=== PATIENT | male | born 1985 | race Two or more races ===

== ENCOUNTER 2017-11-18 11:52 | Emergency (ER) | payer SELFPAY ==
[2017-11-18] MEDS ORDERED: traMADol TAB* 50 MG PO ONE (13:07)
[2017-11-18] MEDS ORDERED: Penicillin VK TAB* 250 MG PO ONE (13:07)
--- NOTE | 2017-11-18 13:07 | ED ---
Throat Pain/Nasal Congestion - HPI Summary HPI Summary: 32-year-old male presents with dental pain for the past couple days. He has a history of dental cavities. Does not have a dentist. Pain is severe. Has been taking Tylenol ibuprofen with no relief. No fevers. No pain with eye movement. No swelling on ice. pain is in the front upper teeth. No recent fracture. No pus from the area. No chest or shortness breath. - History of Current Complaint Chief Complaint: EDDentalPain Time Seen by Provider: 11/18/17 12:14 - Allergies/Home Medications Allergies/Adverse Reactions: Allergies Allergy/AdvReac Type Severity Reaction Status Date / Time No Known Allergies Allergy Verified 11/18/17 12:11 PMH/Surg Hx/FS Hx/Imm Hx Endocrine/Hematology History: Denies: Hx Anticoagulant Therapy Respiratory History: Reports: Hx Asthma - Surgical History Surgery Procedure, Year, and Place: APPY - Immunization History Date of Tetanus Vaccine: Unknown Date of Influenza Vaccine: unknown Infectious Disease History: No Infectious Disease History: Denies: Traveled Outside the [place] in Last 30 Days - Family History Known Family History: Negative: Diabetes - Social History Alcohol Use: Weekly Substance Use Type: Reports: Cocaine Substance Use Comment - Amount & Last Used: 1 week ago Hx Tobacco Use: Yes Smoking Status (MU): Heavy Every Day Tobacco Smoker Review of Systems Negative: Fever Positive: Dental Pain Negative: Chest Pain Negative: Shortness Of Breath All Other Systems Reviewed And Are Negative: Yes Physical Exam Triage Information Reviewed: Yes Vital Signs On Initial Exam: Initial Vitals Temp Pulse Resp BP Pulse Ox 98.4 F 68 19 130/89 99 11/18/17 12:08 11/18/17 12:08 11/18/17 12:08 11/18/17 12:08 11/18/17 12:08 Vital Signs Reviewed: Yes Appearance: Positive: Well-Appearing Skin: Positive: Warm, Dry Head/Face: Positive: Normal Head/Face Inspection Eyes: Positive: Normal, EOMI, PAXTON, Conjunctiva Clear ENT: Positive: Normal ENT inspection, Pharynx normal, TMs normal Dental: Positive: Percussion Tenderness @ - 8,9,10, Gross Decay/Caries @ - throughout. Negative: Abscess @ Neck: Positive: Supple, Nontender, No Lymphadenopathy Respiratory/Lung Sounds: Positive: Clear to Auscultation, Breath Sounds Present Cardiovascular: Positive: Normal, RRR Musculoskeletal: Positive: Normal Neurological: Positive: Normal Psychiatric: Positive: Normal Diagnostics - Vital Signs Vital Signs Temp Pulse Resp BP Pulse Ox 11/18/17 12:08 98.4 F 68 19 130/89 99 - Laboratory Lab Statement: Any lab studies that have been ordered have been reviewed, and results considered in the medical decision making process. EENT Course/Dx - Course Course Of Treatment: 32-year-old male presents with dental pain for the past couple days. He has a history of dental cavities. Does not have a dentist. Pain is severe. Has been taking Tylenol ibuprofen with no relief. No fevers. No pain with eye movement. No swelling on ice. pain is in the front upper teeth. No recent fracture. No pus from the area. No chest or shortness breath. On exam has tenderness to teeth 8,9, 10. No abscess felt. Has cavities throughout. We'll treat with penicillin. Due to patient being extreme pain given a short course of pain relievers. Patient understands and agrees with plan. - Differential Diagnoses Differential Diagnoses: Dental Abscess, Dental Caries, Fractured Tooth - Diagnoses Provider Diagnoses: Dental caries Discharge - Sign-Out/Discharge Documenting (check all that apply): Discharge/Admit/Transfer - Discharge Plan Condition: Good Disposition: HOME Prescriptions: Penicillin VK TAB* [Penicillin VK 250 mg Tab*] 500 mg PO QID #27 tab traMADol TAB* [Ultram*] 50 mg PO Q8H PRN #9 tab MDD 3 PRN Reason: Pain Patient Education Materials: Toothache (ED) Referrals: [facility] [place] [facility] [Outside] Additional Instructions: Take antibiotics: 4 times a day for 7 days, first dose given in ED Use ibuprofen every 6 hours and narcotic for break through pain at night every 8 hours Avoid hard, crunchy food until seen by dentist Follow up with dentist as soon as possible Return to ED if develop fever, shortness of breath, pain with eye movement or swelling around eye Establish care with primary care physician - Billing Disposition and Condition Condition: GOOD Disposition: Home Images - Images Dental: 1 - pain
[2017-11-18 13:33] VITALS: BP 160/100
== END 2017-11-18 13:31 | disposition home or self-care (01) ==
LOC: ED 11:52
DX: K02.9 Dental caries, unspecified (principal); Z72.0 Tobacco use
CPT/HCPCS: 99282; A9270-GY